=== PATIENT | female | born 1945 | race Caucasian/White ===

== ENCOUNTER → 2018-05-03 | Outpatient (CLI) | payer MEDICARE, OTHER | LOC: MC.RAD 10:06 | DX: Z12.31 Encounter for screening mammogram for malignant neoplasm of breast (principal) ==

== ENCOUNTER → 2018-06-17 | Outpatient (CLI) | payer MEDICARE, OTHER | LOC: SUN.DIA 10:39 | DX: E11.9 Type 2 diabetes mellitus without complications (principal); E03.9 Hypothyroidism, unspecified | CPT/HCPCS: G0108 ==

== ENCOUNTER → 2018-07-10 | Outpatient (CLI) | payer MEDICARE, OTHER | LOC: SUN.DIA 12:51 | DX: E11.9 Type 2 diabetes mellitus without complications (principal); E03.9 Hypothyroidism, unspecified ==

== ENCOUNTER → 2018-08-08 | Outpatient (CLI) | payer MEDICARE, OTHER | LOC: SUN.DIA 09:30 | DX: E11.9 Type 2 diabetes mellitus without complications (principal); E03.9 Hypothyroidism, unspecified | CPT/HCPCS: G0109 ==

== ENCOUNTER → 2018-08-15 | Outpatient (CLI) | payer MEDICARE, OTHER | LOC: SUN.DIA 09:30 | DX: E11.9 Type 2 diabetes mellitus without complications (principal); E03.9 Hypothyroidism, unspecified | CPT/HCPCS: G0109 ==

== ENCOUNTER → 2018-08-22 | Outpatient (CLI) | payer MEDICARE, OTHER | LOC: SUN.DIA 09:30 | DX: E11.9 Type 2 diabetes mellitus without complications (principal); E03.9 Hypothyroidism, unspecified | CPT/HCPCS: G0109 ==

== ENCOUNTER → 2018-08-27 | Outpatient (CLI) | payer MEDICARE, OTHER | LOC: SUN.DIA 16:50 | DX: E11.9 Type 2 diabetes mellitus without complications (principal); E03.9 Hypothyroidism, unspecified ==

== ENCOUNTER → 2018-08-29 | Outpatient (CLI) | payer MEDICARE, OTHER | LOC: SUN.DIA 08:50 | DX: E11.9 Type 2 diabetes mellitus without complications (principal); E03.9 Hypothyroidism, unspecified | CPT/HCPCS: G0109 ==

== ENCOUNTER → 2018-10-22 | Outpatient (CLI) | payer MEDICARE, OTHER | LOC: SUN.DIA 10:29 | DX: E11.9 Type 2 diabetes mellitus without complications (principal); E03.9 Hypothyroidism, unspecified ==

== ENCOUNTER → 2018-12-17 | Outpatient (CLI) | payer MEDICARE, OTHER | LOC: SUN.DIA 08:26 | DX: R73.03 Prediabetes (principal); G62.9 Polyneuropathy, unspecified; E78.5 Hyperlipidemia, unspecified; I10 Essential (primary) hypertension; E66.9 Obesity, unspecified | CPT/HCPCS: G0108 ==

== ENCOUNTER → 2018-12-24 | Outpatient (CLI) | payer MEDICARE, OTHER | LOC: SUN.DIA 12:44 | DX: E11.9 Type 2 diabetes mellitus without complications (principal); E03.9 Hypothyroidism, unspecified | CPT/HCPCS: G0108 ==

== ENCOUNTER → 2019-01-23 | Outpatient (CLI) | payer MEDICARE, OTHER | LOC: SUN.DIA 12:45 | DX: E11.9 Type 2 diabetes mellitus without complications (principal); E03.9 Hypothyroidism, unspecified | CPT/HCPCS: G0108 ==

== ENCOUNTER → 2019-03-04 | Outpatient (CLI) | payer MEDICARE, OTHER | LOC: SUN.DIA 13:04 | DX: E11.9 Type 2 diabetes mellitus without complications (principal); E03.9 Hypothyroidism, unspecified | CPT/HCPCS: G0108 ==

== ENCOUNTER → 2019-09-19 | Outpatient (CLI) | payer MEDICARE, OTHER | LOC: MC.RAD 09:14 | DX: Z12.31 Encounter for screening mammogram for malignant neoplasm of breast (principal) ==

== ENCOUNTER → 2022-08-01 | Outpatient (CLI) | payer MEDICARE | LOC: DIA.ED 10:31 | DX: E11.65 Type 2 diabetes mellitus with hyperglycemia (principal); Z79.4 Long term (current) use of insulin | CPT/HCPCS: G0108 ==

== ENCOUNTER → 2022-08-03 | Outpatient (CLI) | payer MEDICARE | LOC: DIA.ED 07:29 | DX: E11.65 Type 2 diabetes mellitus with hyperglycemia (principal); Z79.4 Long term (current) use of insulin; E03.9 Hypothyroidism, unspecified ==

== ENCOUNTER → 2022-08-10 | Outpatient (CLI) | payer MEDICARE | LOC: DIA.ED 07:48 | DX: E11.65 Type 2 diabetes mellitus with hyperglycemia (principal); Z79.4 Long term (current) use of insulin; E03.9 Hypothyroidism, unspecified | CPT/HCPCS: G0108 ==

== ENCOUNTER → 2022-09-12 | Outpatient (CLI) | payer MEDICARE | LOC: DIA.ED 10:58 | DX: E11.65 Type 2 diabetes mellitus with hyperglycemia (principal); Z79.4 Long term (current) use of insulin; I10 Essential (primary) hypertension | CPT/HCPCS: G0108 ==

== ENCOUNTER 2023-02-22 16:00 | Outpatient (RCR) | payer MEDICARE | END 2023-02-23 | disposition home or self-care (01) | LOC: COL.RAD | DX: R13.12 Dysphagia, oropharyngeal phase (principal) ==

== ENCOUNTER 2024-03-18 16:45 | Inpatient (IN) | payer MEDICARE ==
[~2024-03-18] VITALS: Ht 165.1 cm; Wt 62.4 kg
[2024-03-18] MEDS ORDERED: Ondansetron 4 MG/2 ML VIAL IV ONE (18:00)
[2024-03-18] MEDS ORDERED: NS 500 ML IV ONE (18:00)
[2024-03-18] MEDS ORDERED: Morphine 4 MG/ML VIAL IV ONE (18:00)
[2024-03-18 18:09] LABS: BASO % 0.2 % (0.0-2.0); GRAN # 11.8 K/mm3 (1.4-6.5); GRAN % 69.2 % (42.2-75.2); LYMPH # 3.9 K/mm3 (1.2-3.4); LYMPH % 22.9 % (20.0-51.0); MEAN CELL VOLUME 81 fl (80.0-100.0); MEAN CORPUSCULAR HGB CONC 31 g/dl (33.0-37.0); MEAN PLATELET VOLUME 10.4 fl (7.4-10.4); MONO # 1.1 K/mm3 (0.1-0.6); MONO % 6.7 % (1.7-9.3); PLATELET COUNT 323 K/mm3 (130-400); RED BLOOD COUNT 3.94 M/mm3 (4.10-5.30); REDCELL DISTRIBUTION WIDTH-CV 16.7 % (11.5-14.5)
[2024-03-18 18:11] LABS: HEMATOCRIT 31.8 % (37.0-47.0); HEMOGLOBIN 9.9 g/dl (12.5-16.0); MEAN CORPUSCULAR HEMOGLOBIN 25 pg (27-31)
[2024-03-18 18:20] LABS: ALBUMIN 3.4 g/dL (3.4-4.8); BILIRUBIN,TOTAL 0.7 mg/dL (0.2-1.2); CREATININE, serum 1.1 mg/dL (0.57-1.11); POTASSIUM 3.9 mEq/L (3.5-4.5); TOTAL PROTEIN 7.1 g/dl (6.2-8.1)
[2024-03-18 18:26] LABS: TROPONIN-I 0.012 ng/mL (0.00-0.033)
[2024-03-18 19:36] LABS: COLLECTION METHOD CATHETER
[2024-03-18] MEDS ORDERED: Naloxone 0.4 MG/ML VIAL IV PRN (19:45)
[2024-03-18] MEDS ORDERED: D5 1/2 NS 1,000 ML IV SCH (19:45)
[2024-03-18] MEDS ORDERED: Morphine 4 MG/ML VIAL IV PRN (19:45)
[2024-03-18] MEDS ORDERED: oxyCODONE 5 MG TAB PO PRN (19:45)
[2024-03-18] MEDS ORDERED: ELIQUIS 2.5 PO (19:48)
[2024-03-18] MEDS ORDERED: EUTHYROX112 MCG PO (19:52)
[2024-03-18] MEDS ORDERED: PROZAC40 MG PO (19:53)
[2024-03-18] MEDS ORDERED: COLESTID 1GM1 G PO (19:54)
[2024-03-18] MEDS ORDERED: PRILOSEC 20MG20 MG PO (19:54)
[2024-03-18] MEDS ORDERED: NEURONTIN300 MG/CAP PO (19:55)
[2024-03-18] MEDS ORDERED: GLUCOPHAGE1000 MG PO (19:56)
[2024-03-18] MEDS ORDERED: SOLIQUA 100 UNIT3 ML SQ (19:57)
[2024-03-18] MEDS ORDERED: COZAAR 25MG25 MG/TAB PO (19:57)
[2024-03-18] MEDS ORDERED: SINGULAIR 110 MG/TAB PO (19:58)
[2024-03-18] MEDS ORDERED: MULTIPLE VITAMI1 CAP PO (19:59)
[2024-03-18] MEDS ORDERED: CALCIUM 600MG+D1 TAB PO (20:00)
[2024-03-18] MEDS ORDERED: FIBERCON PO (20:01)
[2024-03-18 20:02] LABS: PH 5.5 (5.0-8.5); URINE APPEARANCE CLEAR (CLEAR/HAZY); URINE BLOOD NEGATIVE (NEGATIVE); URINE COLOR YELLOW (YELLOW); URINE GLUCOSE 1+ (NEGATIVE); URINE KETONE TRACE (NEGATIVE); URINE NITRATE NEGATIVE (NEGATIVE); URINE PROTEIN(semi-quant) NEGATIVE (NEGATIVE)
[2024-03-18 20:19] LABS: INR 1.2 (0.8-3.0); PROTHROMBIN TIME 13.6 SECONDS (9.7-12.8)
[2024-03-18 20:30] VITALS: BP 164/81; PULSE 93; TEMP 98.3
[2024-03-18] MEDS ORDERED: NS 1,000 ML IV SCH (20:30)
[2024-03-18] MEDS ORDERED: Insulin Lispro (HumaLOG) SQ SCH (21:00)
[2024-03-18] MEDS ORDERED: Montelukast 10 MG TAB PO SCH (21:00)
[2024-03-18 21:02] VITALS: BP_SYST 164
[2024-03-18] MEDS ORDERED: Gabapentin 300 MG CAP PO SCH (22:17)
[2024-03-18] MEDS ORDERED: NS 50 ML IV SCH (22:55)
[2024-03-18] MEDS ORDERED: Iohexol 350 - 100 ML VIAL IV ONE (22:55)
[2024-03-19] VITALS (12 sets, daily range): BP systolic 105–146; BP diastolic 59–81; PULSE 87–96; TEMP 98–100.5
--- NOTE | 2024-03-19 00:57 | NUR ---
pt was reporting left hip pain rated 6/10. prn norco administered per orders. pt reporting increased pain now rated 9/10. prn morphine administered per orders.
--- NOTE | 2024-03-19 01:39 | NUR ---
pt reports that pain has been relieved by prn morphine.
--- NOTE | 2024-03-19 01:40 | NUR ---
pt arrived to room 344 at 2130. pt assisted to bed via slide board. larkin cath intact with clear yellow urine. admission, physical assessment, and med rec complete.
--- NOTE | 2024-03-19 06:32 | NUR ---
pt reporting increased left hip pain rated 7/10. prn morphine administered per orders.
[2024-03-19 06:52] LABS: BASO % 0.1 % (0.0-2.0); EOS # 0.1 K/mm3 (0.0-0.7); EOS % 0.4 % (0.0-4.0); LYMPH # 3.4 K/mm3 (1.2-3.4); MEAN CELL VOLUME 80 fl (80.0-100.0); MEAN CORPUSCULAR HGB CONC 31 g/dl (33.0-37.0); MEAN PLATELET VOLUME 10.8 fl (7.4-10.4); MONO # 1.1 K/mm3 (0.1-0.6); PLATELET COUNT 256 K/mm3 (130-400); RED BLOOD COUNT 3.31 M/mm3 (4.10-5.30); REDCELL DISTRIBUTION WIDTH-CV 16.5 % (11.5-14.5)
[2024-03-19 06:56] LABS: HEMATOCRIT 26.4 % (37.0-47.0); HEMOGLOBIN 8.2 g/dl (12.5-16.0); MEAN CORPUSCULAR HEMOGLOBIN 25 pg (27-31)
[2024-03-19] MEDS ORDERED: Omeprazole 20 MG **** subs to Pantoprazole 40 MG PO SCH (07:00)
[2024-03-19 07:06] LABS: CALCIUM 8.2 mg/dL (8.4-10.2); CREATININE, serum 0.69 mg/dL (0.57-1.11); POTASSIUM 3.6 mEq/L (3.5-4.5)
--- NOTE | 2024-03-19 08:25 | NUR ---
PT RESTING IN BED. SURGERY PLANNED TOMORROW WILL BE NPO AT MIDNIGHT TONIGHT. BRENDON SAGASTUME PA IN TO SEE PT THIS AN. PT ON 4.5L O2 PNC TO MAINTAIN SATS. RT IN TO SEE PT R/T LOW SATS. IS USED AND PT NOW SATS 92.
[2024-03-19] MEDS ORDERED: Dextrose 50% Water 25 GM/50 ML SYRINGE IV PRN (08:45)
[2024-03-19] MEDS ORDERED: Dextrose (Glucose) 15 GM (4 x 3.75 GM) Chewable TABLET PACK PO PRN (08:45)
[2024-03-19] MEDS ORDERED: Glucagon 1 MG VIAL IM PRN (08:45)
[2024-03-19] MEDS ORDERED: FLUoxetine 20 MG CAP PO SCH (09:00)
[2024-03-19] MEDS ORDERED: Multivitamin TAB PO SCH (09:00)
[2024-03-19] MEDS ORDERED: Losartan 25 MG TAB PO SCH (09:00)
--- NOTE | 2024-03-19 11:11 | NUR ---
IV FLUIDS DISCONTINUED PER ORDERS.
[2024-03-19] MEDS ORDERED: Insulin Lispro (HumaLOG) SQ SCH (12:00)
--- NOTE | 2024-03-19 12:32 | NUR ---
Weld Inspector met with patient to complete intake. Patient reports living at home in [place] with her /DPOA Randal ([phone]). Patient does not have have DPOA document on file at hospital, and was encouraged to provide a copy. Patient sees Dr. Martha Dodd as her PCP and uses [facility] pharmacy for short term prescriptions and [facility] mail order for buttermaker helper medications. Patient denies having any DME and is independent with all activites. Patient reports having falled down stairs at friends house when arriving to play cards. She reports she played cards all afternoon and then fell when getting to her car. Patient states she remembers nothing after that fall. Patient is hopeful to return home as soon as possible. She denies any history of rehab or HH need. Discussed probable need for rehab at discharge which patient voiced understanding. Discharge plan: TBD after surgery and therapy evaluations
--- NOTE | 2024-03-19 14:00 | NUR ---
pt to MRI at this time.
--- NOTE | 2024-03-19 15:31 | NUR ---
PT RETURNED FROM MRI\
[2024-03-19] MEDS ORDERED: cefTRIAXone 1 G in Water For Injection,Sterile 10 ML IV SCH (16:30)
--- NOTE | 2024-03-19 19:24 | NUR ---
report received from todd hansen. pt resting in bed with at bedside. pt denies pain. fall precautions in place. call light in reach. all needs met at this time.
--- NOTE | 2024-03-19 22:22 | NUR ---
shift assessment complete, see documentation. pt tolerated hs meds well. pt c/o left hip pain rated 7/10. prn oxycodone administered per orders. fall precautions in place. call light in reach. all needs met at this time.
[2024-03-20] VITALS (18 sets, daily range): BP systolic 127–157; BP diastolic 71–105; PULSE 83–92; TEMP 97.7–99
[2024-03-20] MEDS ORDERED: NS 1,000 ML IV SCH ×2 (03:45→13:30)
[2024-03-20] MEDS ORDERED: LR 1,000 ML IV SCH (08:30)
--- NOTE | 2024-03-20 08:50 | NUR ---
Pt laying in bed. Pt is A&Ox4. VSS. S1S2. Clear lungs, diminished in bases - 3 L via NC. ABD is rounded, soft, non-tender with audible bowel sounds. Soto cath in place. Laceration on Left side of head - 6 isaiah, some blood in hair around isaiah. Pt's left hand is edematous. Per weight shifter report, IV in L wrist infiltrated and swelling is taking time to come down. Pt has SCDS on bilateral lower legs and TEDs stocking on R leg. IV in R AC is patent with NS at 75 cc/hr. Pt denies pain, n/v, headache, dizziness. No further needs at this time. Pt has call light in reach and bed alarm on.
[2024-03-20 09:07] LABS: HEMATOCRIT 27.5 % (37.0-47.0); HEMOGLOBIN 8.6 g/dl (12.5-16.0)
[2024-03-20] MEDS ORDERED: fentaNYL 50 MCG/ML 2 ML VIAL ONE ×3 (09:30→12:08)
[2024-03-20] MEDS ORDERED: Midazolam 2 MG/2 ML VIAL ONE (09:30)
[2024-03-20] MEDS ORDERED: Lidocaine PF 2% (20 MG/ML) 5 ML VIAL ONE (09:33)
--- NOTE | 2024-03-20 09:50 | NUR ---
Pt off floor for surgery.
[2024-03-20] MEDS ORDERED: dexAMETHasone 10 MG/ML VIAL ONE (09:51)
[2024-03-20] MEDS ORDERED: traMADol 50 MG TAB PO PRN (13:30)
[2024-03-20] MEDS ORDERED: Magnes Hydrox (MOM) 80 MG/ML 30 ML CUP PO PRN (13:30)
[2024-03-20] MEDS ORDERED: Ondansetron 4 MG/2 ML VIAL IV PRN (13:30)
--- NOTE | 2024-03-20 14:25 | NUR ---
Pt arrived from PACU. Pt is A&Ox4. VSS. S1S2. Clear lung sounds. ABD is rounded, soft, non-tender. Palpable pulses and good strength in all extremities. Pt denies pain, n/v, headache, dizziness. Incision site on L hip is CDI has aquacell on. Neuro exam is WNL. Pt is tolerating ice chips well, no n/v. Pt has IV fluids in R AC - NS at 60 cc/hr. No further needs at this time. Call light in reach and bed alarm on.
--- NOTE | 2024-03-20 16:19 | NUR ---
propagation worker was notified IPR is following patient to see if she would be a candidate for IPR after her surgery is finalized today.
--- NOTE | 2024-03-20 18:14 | NUR ---
Pt reported the wrong number for her is on the chart. Her 's cell phone number is [phone].
[2024-03-20] MEDS ORDERED: ceFAZolin 1 G in Water For Injection,Sterile 10 ML IV SCH (19:30)
[2024-03-20] MEDS ORDERED: Sennosides/Docusate 8.6-50 MG TAB PO SCH (21:00)
[2024-03-20] MEDS ORDERED: Apixaban 2.5 MG TAB PO SCH (21:00)
[2024-03-20] MEDS ORDERED: Melatonin 3 MG TAB PO PRN (21:00)
--- NOTE | 2024-03-20 22:54 | NUR ---
Patient called desk stating her fingers were feeling tight and swollen. States she is worried her IV site is bad. 20g in right AC flushes well and has good blood return. No s/s of infiltration noted. Report given to primary nurse RAFIQ Guerrier.
[2024-03-21] VITALS (15 sets, daily range): BP systolic 127–157; BP diastolic 67–75; PULSE 78–96; TEMP 98–101.2
[2024-03-21 05:02] LABS: BASO % 0.1 % (0.0-2.0); EOS % 0.1 % (0.0-4.0); GRAN # 7.3 K/mm3 (1.4-6.5); LYMPH # 3.4 K/mm3 (1.2-3.4); MEAN CELL VOLUME 79 fl (80.0-100.0); MEAN CORPUSCULAR HGB CONC 32 g/dl (33.0-37.0); MEAN PLATELET VOLUME 10.1 fl (7.4-10.4); MONO % 8.4 % (1.7-9.3); PLATELET COUNT 252 K/mm3 (130-400); RED BLOOD COUNT 3.18 M/mm3 (4.10-5.30); REDCELL DISTRIBUTION WIDTH-CV 16.5 % (11.5-14.5)
[2024-03-21 05:04] LABS: MEAN CORPUSCULAR HEMOGLOBIN 25 pg (27-31)
[2024-03-21 05:19] LABS: CALCIUM 8.1 mg/dL (8.4-10.2); CREATININE, serum 0.66 mg/dL (0.57-1.11); POTASSIUM 3.7 mEq/L (3.5-4.5)
--- NOTE | 2024-03-21 08:56 | NUR ---
PT WORKING WITH THERAPY AFTER EATING BREAKFAST. PAIN CONTROLLED WITH PO MEDS. PT IS WAITING FOR INSURANCE APPOVAL TO TRANSFER TO [facility]. DRESSING CDI. PT IS A/O X4.
[2024-03-21] MEDS ORDERED: Calcium Carbonate 500 MG TAB PO SCH (09:00)
[2024-03-21] MEDS ORDERED: Ascorbic Acid 500 MG TAB PO SCH (09:00)
[2024-03-21] MEDS ORDERED: cefTRIAXone 1 G in Water For Injection,Sterile 10 ML IV SCH (10:00)
[2024-03-21] MEDS ORDERED: Multivitamin TAB PO SCH (12:00)
--- NOTE | 2024-03-21 15:43 | NUR ---
warehouse worker was notified by PT that patient is a good candidate for IPR. SW asked Dr. Vickers to place IPR consult. SW met with patient and provided Medicare.gov list of IPR and SNF. Patient reports her first choice would be IPR then second would be [facility] if she does not receive authorization for IPR. SW was notified by IPR director, Stefania, that she has started the authorization process through [facility]. Discharge plan: IPR or SNF
--- NOTE | 2024-03-21 19:00 | NUR ---
PT VISITING WITH . STABLE ON ROUNDS. NO SIGN OF DISTRESS AT THIS TIME. CONTINUE WITH PLAN OF CARE.
--- NOTE | 2024-03-21 19:09 | NUR ---
discontinued larkin catheter per orders @6713. pt tolerated well.
[2024-03-22] VITALS (12 sets, daily range): BP systolic 110–157; BP diastolic 64–78; PULSE 79–94; TEMP 98.8–99.6
[2024-03-22 06:52] LABS: BASO % 0.2 % (0.0-2.0); EOS # 0.1 K/mm3 (0.0-0.7); EOS % 1.1 % (0.0-4.0); GRAN # 6.2 K/mm3 (1.4-6.5); GRAN % 55.9 % (42.2-75.2); LYMPH # 3.6 K/mm3 (1.2-3.4); LYMPH % 32.7 % (20.0-51.0); MEAN CELL VOLUME 79 fl (80.0-100.0); MEAN CORPUSCULAR HGB CONC 32 g/dl (33.0-37.0); MEAN PLATELET VOLUME 10.5 fl (7.4-10.4); MONO # 1.1 K/mm3 (0.1-0.6); MONO % 9.6 % (1.7-9.3); PLATELET COUNT 266 K/mm3 (130-400); RED BLOOD COUNT 2.92 M/mm3 (4.10-5.30)
[2024-03-22 06:56] LABS: HEMOGLOBIN 7.3 g/dl (12.5-16.0); MEAN CORPUSCULAR HEMOGLOBIN 25 pg (27-31)
[2024-03-22 07:06] LABS: CALCIUM 8.1 mg/dL (8.4-10.2); CREATININE, serum 0.62 mg/dL (0.57-1.11); POTASSIUM 3.3 mEq/L (3.5-4.5)
--- NOTE | 2024-03-22 07:44 | NUR ---
PT WAS ABLE TO VOID AFTER MIDNIGHT. MONITORING NEED TO STRAIGHT CATH WITH BLADDER SCANNER. STABLE ON ROUNDS. NO SIGN OF DISTRESS AT THIS TIME.
--- NOTE | 2024-03-22 07:45 | NUR ---
REMAINS STABLE OVER NIGHT. HYPOTENSION RESOLVED AFTER 1 L OF NS. NO SIGN OF DISTRESS AT THIS TIME.
[2024-03-22] MEDS ORDERED: Cefuroxime 250 MG TAB PO SCH (08:00)
--- NOTE | 2024-03-22 08:25 | NUR ---
pt a&ox4 sitting up in bed. morning meds given and assessment complete. pt denies pain in her left hip but wants to stay on top of pain for therapy and requests tramadol when it is due. vss and tele in place. pt remains on 2L nasal cannula. scds and teds to ble. aqaucell dressing is cdi. encouraged pt to sit in recliner for breakfast but states "i would rather sit on the floor than the recliner". INT to right ac patent. fall precautions in place. no needs at this time. call light in reach.
[2024-03-23] VITALS (11 sets, daily range): BP systolic 102–148; BP diastolic 63–73; PULSE 77–93; TEMP 98.2–98.3
[2024-03-23 06:57] LABS: BASO % 0.3 % (0.0-2.0); EOS # 0.2 K/mm3 (0.0-0.7); EOS % 1.3 % (0.0-4.0); GRAN # 6.9 K/mm3 (1.4-6.5); GRAN % 57.2 % (42.2-75.2); LYMPH # 3.8 K/mm3 (1.2-3.4); LYMPH % 31.8 % (20.0-51.0); MEAN CELL VOLUME 80 fl (80.0-100.0); MEAN CORPUSCULAR HGB CONC 31 g/dl (33.0-37.0); MEAN PLATELET VOLUME 10.6 fl (7.4-10.4); MONO % 8.6 % (1.7-9.3); PLATELET COUNT 272 K/mm3 (130-400); RED BLOOD COUNT 2.81 M/mm3 (4.10-5.30); REDCELL DISTRIBUTION WIDTH-CV 17.1 % (11.5-14.5)
[2024-03-23 07:11] LABS: HEMATOCRIT 22.5 % (37.0-47.0); MEAN CORPUSCULAR HEMOGLOBIN 25 pg (27-31)
[2024-03-23 07:12] LABS: CALCIUM 7.9 mg/dL (8.4-10.2); CREATININE, serum 0.6 mg/dL (0.57-1.11); POTASSIUM 3.3 mEq/L (3.5-4.5)
--- NOTE | 2024-03-23 08:15 | NUR ---
pt a&ox4 sitting up in bed. assisted pt to bathroom, pt had medium formed bowel movement. encouraged pt to sit in the recliner for breakfast this morning, pt agreeable. vss. pt on room air at 96%. aqaucell dressing is cdi. pt denies pain in her left hip. pt experienced some dry heaving after returning to recliner, zofran given for nausea. pt denies needs at this time. call light in reach. fall precautions in place.
--- NOTE | 2024-03-23 13:43 | NUR ---
Notified by RAFIQ Day, that patient and have questions related to discharge. Met with patient and to discuss pending IPR admission due to insurance authorization. They are hopeful that transfer will happen tomorrow. Discharge plan: IPR pending authorization
[2024-03-23] MEDS ORDERED: Insulin Glargine-ygfn (Lantus) SQ SCH (16:04)
[2024-03-24] VITALS (7 sets, daily range): BP systolic 97–106; BP diastolic 60–64; PULSE 73–81; TEMP 97.7–98.4
--- NOTE | 2024-03-24 06:57 | NUR ---
PT ON CONTINUOUS PULSE OX DURING THE NOC, STARTED AT 2L PER NC, BUT REQUIRING 6L PER OXIMASK THIS AM TO KEEP SATS >88%. PAIN CONTROLLED WITH PO PAIN MEDS, NO C/O NAUSEA THIS SHIFT.
--- NOTE | 2024-03-24 08:20 | NUR ---
pt awake and sitting on the edge of the bed, pt states that she feels anxious this morning. dr parson in to see patient, ok to give eliquis and will recheck hgb at 10am. holding losarten due to pts soft blood pressures. pt denies pain in her left hip. aquacell dressing is cdi. pt on 1L nasal cannula. INT to right ac patent. pt denies needs at this time. call light in reach. fall precautions in place.
--- NOTE | 2024-03-24 11:23 | NUR ---
SW attended clinical rounds with team. Patient stable for discharge and authorization is pending for IPR. SW notified by IPR that authorization has been received and patient can admit today. SW spoke with patient, discussed Medicare IM form. Patient agreeable to discharge and signed form. Copy provided to patient, original on chart.
[2024-03-24 12:00] LABS: HEMATOCRIT 25.6 % (37.0-47.0); HEMOGLOBIN 7.7 g/dl (12.5-16.0)
[2024-03-24] MEDS ORDERED: ROXICODONE 55 MG/TAB PO (12:36)
[2024-03-24] MEDS ORDERED: TYLENOL 500MG500 MG PO (12:37)
--- NOTE | 2024-03-24 13:07 | NUR ---
pt transferred to [facility] by wheelchair.
== END 2024-03-24 13:13 | DRG 521 ==
LOC: COL.ER 16:45 → SURG 19:38
PROVIDERS: Emergency Medicine; Internal Medicine; Nurse Anesthetist, Certified Registered; Physician Assistant; ADMIT Internal Medicine
PROC: 0SRS019 Replacement of Left Hip Joint, Femoral Surface with Metal Synthetic Substitute, Cemented, Open Approach (ICD-10-PCS; principal; 2024-03-18)
DX: S72.002A Fracture of unspecified part of neck of left femur, initial encounter for closed fracture (principal); J96.01 Acute respiratory failure with hypoxia; S32.018A Other fracture of first lumbar vertebra, initial encounter for closed fracture; J98.11 Atelectasis; N39.0 Urinary tract infection, site not specified; D62 Acute posthemorrhagic anemia; W19.XXXA Unspecified fall, initial encounter; S01.01XA Laceration without foreign body of scalp, initial encounter; G47.34 Idiopathic sleep related nonobstructive alveolar hypoventilation; D72.829 Elevated white blood cell count, unspecified; E11.9 Type 2 diabetes mellitus without complications; Z79.4 Long term (current) use of insulin; Z86.718 Personal history of other venous thrombosis and embolism; Z79.01 Long term (current) use of anticoagulants; I10 Essential (primary) hypertension; K21.9 Gastro-esophageal reflux disease without esophagitis; E03.9 Hypothyroidism, unspecified; F32.A Depression, unspecified; Y93.01 Activity, walking, marching and hiking
CPT/HCPCS: A4314; A6197; A9284; C1776; J0690; J0696; J1100; J1815; J2250; J2270; J2405; J2704; J2795; J3010; J7030; J7040; Q9967

== ENCOUNTER 2024-03-24 12:28 | Inpatient (IN) | payer MEDICARE ==
[~2024-03-24] VITALS: Ht 165.1 cm; Wt 65.0 kg
[~2024-03-24 12:28] MED LIST: CALCIUM 600MG+D1 TAB PO; COLESTID 1GM1 G PO; COZAAR 25MG25 MG/TAB PO; ELIQUIS 2.5 PO; EUTHYROX112 MCG PO; FIBERCON PO; GLUCOPHAGE1000 MG PO; MULTIPLE VITAMI1 CAP PO; NEURONTIN300 MG/CAP PO; PRILOSEC 20MG20 MG PO; PROZAC40 MG PO; SINGULAIR 110 MG/TAB PO; SOLIQUA 100 UNIT3 ML SQ; metFORMIN 500 MG TAB PO SCH
[2024-03-24] MEDS ORDERED: ROXICODONE 55 MG/TAB PO (12:36)
[2024-03-24] MEDS ORDERED: TYLENOL 500MG500 MG PO (12:37)
[2024-03-24] MEDS ORDERED: Naloxone 0.4 MG/ML VIAL IV PRN (13:00)
[2024-03-24] MEDS ORDERED: Acetaminophen 325 MG TAB PO PRN (13:00)
[2024-03-24] MEDS ORDERED: Docusate Sodium 100 MG CAP PO PRN (13:00)
[2024-03-24] MEDS ORDERED: Sennosides/Docusate 8.6-50 MG TAB PO PRN (13:00)
[2024-03-24] MEDS ORDERED: Polyethylene Glycol 3350 17 GM PDS PO PRN (13:00)
--- NOTE | 2024-03-24 13:17 | NUR ---
New pt arrived to unit via wheelchair from Surgical Floor. Pt is a/o x 4, pleasant. Pt has Aquacel dressing to L hip that is CDI. Pt has area of swelling, bruising to right side of tailbone that she reports is from a consult for an interstim device. Pt has left occiput laceration w/ approx 4 isaiah & dried blood noted in hair around isaiah. Pt is on 1L O2 per nasal cannula - PT at the bedside & will do room air trial. Pt requiring 6L O2 during HS per report. Orientation provided to room/unit. Call light in reach.
--- NOTE | 2024-03-24 13:49 | NUR ---
Pt has been at 95-98% ORA while with PT. Will leave O2 off & will continue to monitor.
--- NOTE | 2024-03-24 14:04 | NUR ---
Pt off unit w/ PT.
[2024-03-24] MEDS ORDERED: Acetaminophen 500 MG TAB PO PRN (16:45)
[2024-03-24] MEDS ORDERED: oxyCODONE 5 MG TAB PO PRN (16:45)
--- NOTE | 2024-03-24 16:58 | NUR ---
Pt reporting L hip pain at 06/04. Oxycodone given per PRN order.
[2024-03-24 17:48] VITALS: BP 110/72; PULSE 87; TEMP 98.3
--- NOTE | 2024-03-24 18:35 | NUR ---
Lab called to report critical Trop of 2.515. Dr. Cisneros notified. Per Dr. Cisneros, update her on next result. Will pass on to night RN.
[2024-03-24] MEDS ORDERED: Clopidogrel 75 MG TAB PO SCH (18:48)
[2024-03-24 18:51] VITALS: BP 118/76; PULSE 88; TEMP 98.5
--- NOTE | 2024-03-24 18:55 | NUR ---
Call received from Dr. Vickers re: critical troponin. See EMAR & Labs for new orders. Cardiology consult placed by Dr. Vickers. Attempted call to Dr. Alvarez - no answer- msg left for callback.
[2024-03-24] MEDS ORDERED: Heparin 5,000 UNITS/ML 1 ML VIAL IV PRN (19:00)
[2024-03-24] MEDS ORDERED: Heparin/D5W 250 ML IV SCH (19:00)
--- NOTE | 2024-03-24 19:29 | NUR ---
Pt sitting up in bed visiting w/ night RN. Pt informed of pending transfer to [facility] level of care. Nitro SL 0.4 given per order at 1913. Pt states chest pain feels better & starting while she was working w/ PT earlier this afternoon. Pt is tearful. Questions answered. at the bedside.
--- NOTE | 2024-03-24 19:36 | NUR ---
191-NOTIFIED BY [facility] RN THAT PATIENT HAD BEEN HAVING NEW ONSET CHEST PAIN SINCE PT THIS AFTERNOON. BEAN HAD BEEN NOTIFIED AND CAME TO SEE PATIENT. PT. HAD RECEIVED INITIAL EKG AND HAD TROPONIN DRAWN THAT WAS ELEVATED. PT. CONTINUED TO HAVE CHEST PAIN AND DR. DEL ANGEL VERBALIZED TO IPR RN THAT PATIENT MAY NEED HIGHER LEVEL OF CARE. PATIENT RECEIVING REPEAT EKG AT THIS TIME. ORDERS BEING PUT IN BY MD FOR ASPIRIN AND PLAVIX. 1919-CALLED DR. GONZALEZ TO DETERMINE PLAN OF CARE FOR PATIENT. SHE VERBALIZED PATIENT NEEDS TO BE MOVED TO ICU FOR HEPARIN AND NITRO GGT AT THIS TIME. PATIENT WILL POTENTIALLY BE TRANSFERRED OUT.
[2024-03-24 20:14] VITALS: BP 146/79; PULSE 84; TEMP 98.4
--- NOTE | 2024-03-24 20:20 | NUR ---
SEE MAR FOR MEDS GIVEN, HEPARIN DRIP INITIATED, OXYGEN CONTINUES PER NC AT 3 LPM, PATIENT REPORT CHEST PAIN SUBSIDED AFTER NITRO GIVEN.
[2024-03-24 20:21] LABS: PARTIAL THROMBOPLASTIN TIME 29.6 SECONDS (26.0-37.0)
--- NOTE | 2024-03-24 20:57 | NUR ---
1922 - Contacted to verify EKG results and plan of care. Informed doc of process to discharge patient from IPR and admit to ICU. 1931 - Contacted Registration to create new patient account for ICU admission. 1936 - Received call from . States she is contacting [facility] for patient transfer. Patient to stay on IPR with heparin gtt and PRN SL nitro for chest pain. 1957 - Received call from [employer] school principal at [facility] with acceptance and bed information. 1999 - Contacted who states patient is stable for ground transportation. Contacted [facility] - station 5 from [place] will be in route for transfer. 2046 - [facility] arrives to transfer patient. IPR RN states patient pain free.
[2024-03-24 21:00] VITALS: BP_SYST 146
[2024-03-24] MEDS ORDERED: Apixaban 2.5 MG TAB PO SCH (21:00)
[2024-03-24] MEDS ORDERED: Gabapentin 300 MG CAP PO SCH (21:00)
--- NOTE | 2024-03-24 21:22 | NUR ---
Report called to [facility] Consuelo Kerns E.D., RN. Paperwork sent with EMS staff. Patient with no further complaint of chest pain at time of departure. Ox per NC stopped by EMS for eval for O2 sat. IV heparin infusion in place at 800 unit per hr to continue during EMS transportation to [facility].
[2024-03-25] MEDS ORDERED: Omeprazole 20 MG **** subs to Pantoprazole 40 MG PO SCH (07:00)
[2024-03-25] MEDS ORDERED: Insulin Glargine-ygfn (Lantus) SQ SCH (08:00)
[2024-03-25] MEDS ORDERED: Montelukast 10 MG TAB PO SCH (09:00)
[2024-03-25] MEDS ORDERED: Calcium Carb/Vit D3 500 mg-200 Units TAB PO SCH (09:00)
[2024-03-25] MEDS ORDERED: FLUoxetine 20 MG CAP PO SCH (09:00)
[2024-03-25] MEDS ORDERED: Multivitamin TAB PO SCH (09:00)
== END 2024-03-24 21:10 | disposition short-term general hospital (02) | DRG 560 ==
PROVIDERS: Internal Medicine; ADMIT Physical Medicine & Rehabilitation Sports Medicine
DX: S72.002D Fracture of unspecified part of neck of left femur, subsequent encounter for closed fracture with routine healing (principal); E87.1 Hypo-osmolality and hyponatremia; E87.20 Acidosis, unspecified; S01.01XD Laceration without foreign body of scalp, subsequent encounter; D72.829 Elevated white blood cell count, unspecified; Z74.09 Other reduced mobility; R26.89 Other abnormalities of gait and mobility; D64.9 Anemia, unspecified; E11.65 Type 2 diabetes mellitus with hyperglycemia; Z86.718 Personal history of other venous thrombosis and embolism; K21.9 Gastro-esophageal reflux disease without esophagitis; I10 Essential (primary) hypertension; E03.9 Hypothyroidism, unspecified; F32.A Depression, unspecified; W10.9XXD Fall (on) (from) unspecified stairs and steps, subsequent encounter
CPT/HCPCS: J1644

== ENCOUNTER 2024-09-05 12:28 | Outpatient (RCR) | payer MEDICARE ==
[~2024-09-05 12:28] MED LIST changes: +AMITRIPTYLINE H50 M1 PO; +LASIX 40MG TABL40 MG PO; +MAG-OX 400400 MG/TAB PO; +PLAVIX 75MG TAB75 MG PO; +PREDNISOLO15 MG/5 M3 PO; +ROXICODONE 55 MG/TAB PO; +TOPROL XL 25MG25 MG PO; +TYLENOL 500MG500 MG PO; +ZYRTEC5 MG PO; -metFORMIN 500 MG TAB PO SCH
== END 2024-09-25 | disposition home or self-care (01) ==
LOC: COL.CR
DX: Z02.89 Encounter for other administrative examinations (principal)